=== PATIENT | male | born 1975 | race Caucasian/White ===

== ENCOUNTER 2018-11-02 22:56 | Emergency (ER) | payer SELFPAY ==
[~2018-11-02] VITALS: Ht 160 cm; Wt 80.1 kg
[2018-11-02 23:01] VITALS: Ht 160 cm; Wt 80.1 kg
[2018-11-03] MEDS ORDERED: LIDOCAINE/MYLANTA 40 ML BTL PO STA (00:24)
[2018-11-03] MEDS ORDERED: FAMOTIDINE 20 MG TAB PO STA (00:24)
[2018-11-03] MEDS ORDERED: BELLADONNA/PHENOBARBITAL TAB PO STA (01:04)
[2018-11-03] MEDS ORDERED: OMEP20CA16 PO (01:05)
[2018-11-03] MEDS ORDERED: FAMO-96 PO (01:05)
--- NOTE | 2018-11-03 01:33 | ERD ---
ER Documentation Chief Complaint Chief Complaint upper abdominal/back pain since 1830. also c/o vomiting HPI 43-year-old male who presents the emergency room describing epigastric abdominal discomfort. He describes postprandial burning epigastric abdominal discomfort radiating into the middle of his back. This started after his meal just prior to arrival. The patient describes vomiting at triage but denies this to me. He denies any chest pressure diaphoresis or exertional symptoms. Patient denies any heavy alcohol use, no NSAID abuse. He denies melena. Symptoms are moderate currently. ROS All systems reviewed and are negative except as per history of present illness. Medications Home Meds Active Scripts Famotidine* (Pepcid*) 20 Mg Tablet, 20 MG PO BID PRN for reflux symptoms for 4 Days, TAB Prov:CONY CASTILLO MD 11/03/18 Omeprazole* (Omeprazole*) 20 Mg Capsule.dr, 20 MG PO DAILY, #14 Prov:CONY CASTILLO MD 11/03/18 Allergies Allergies: Coded Allergies: No Known Drug Allergies (Verified Allergy, Unknown, 11/02/18) PMhx/Soc Medical and Surgical Hx: pt denies Medical Hx, pt denies Surgical Hx Hx Alcohol Use: Yes (occassional) Hx Substance Use: No Hx Tobacco Use: No Smoking Status: Never smoker FmHx Family History: No diabetes Physical Exam Vitals Vital Signs Date Temp Pulse Resp B/P (MAP) Pulse Ox O2 O2 Flow FiO2 Time Delivery Rate 11/02/18 98.1 71 18 141/72 98 23:01 (95) Physical Exam General: Well developed, well nourished, no acute distress Head: Normocephalic, atraumatic. Eyes: Pupils equally reactive, EOM intact ENT: Moist mucous membranes Neck: Supple, no lymphadenopathy Respiratory: Lungs clear bilaterally, no distress Cardiovascular: RRR, no murmurs, rubs, or gallops Abdominal: Soft, non-tender, non-distended, no peritoneal signs, negative Bryant sign : Deferred MSK: No edema, no unilateral swelling, 5/5 strength Neurologic: Alert and oriented, moving all extremities, normal speech, no focal weakness, no cerebellar signs Skin: No rash Psych: Normal mood Result Diagram: 11/03/1811411/03/18 011 Results 24 hrs Laboratory Tests Test 11/03/18 01:15 White Blood Count 9.3 10^3/ul Red Blood Count 5.01 10^6/ul Hemoglobin 14.8 g/dl Hematocrit 41.7 % Mean Corpuscular Volume 83.2 fl Mean Corpuscular Hemoglobin 29.5 pg Mean Corpuscular Hemoglobin Concent 35.5 g/dl Red Cell Distribution Width 12.2 % Platelet Count 201 10^3/UL Mean Platelet Volume 10.7 fl Immature Granulocytes % 0.300 % Neutrophils % 88.0 % Lymphocytes % 7.1 % Monocytes % 4.2 % Eosinophils % 0.1 % Basophils % 0.3 % Nucleated Red Blood Cells % 0.0 /100WBC Immature Granulocytes # 0.030 10^3/ul Neutrophils # 8.2 10^3/ul Lymphocytes # 0.7 10^3/ul Monocytes # 0.4 10^3/ul Eosinophils # 0.0 10^3/ul Basophils # 0.0 10^3/ul Nucleated Red Blood Cells # 0.0 10^3/ul Sodium Level 142 mmol/L Potassium Level 3.7 mmol/L Chloride Level 105 mmol/L Carbon Dioxide Level 26 mmol/L Anion Gap 11 Blood Urea Nitrogen 19 mg/dl Creatinine 0.65 mg/dl Est Glomerular Filtrat Rate mL/min > 60 mL/min Glucose Level 155 mg/dl Calcium Level 9.2 mg/dl Total Bilirubin 0.9 mg/dl Direct Bilirubin 0.00 mg/dl Indirect Bilirubin 0.9 mg/dl Aspartate Amino Transf (AST/SGOT) 352 IU/L Alanine Aminotransferase (ALT/SGPT) 181 IU/L Alkaline Phosphatase 94 IU/L Troponin I < 0.012 ng/ml Total Protein 7.6 g/dl Albumin 4.4 g/dl Globulin 3.20 g/dl Albumin/Globulin Ratio 1.37 Lipase 109 U/L Current Medications Medications Dose Sig/Isreal Start Time Status Last (Trade) Ordered Route PRN Stop Time Admin Dose Reason Admin Famotidine 20 mg ONCE STAT 11/03/18 DC 11/03/18 (Pepcid) PO 00:24 00:29 11/03/18 00:25 40 ml ONCE STAT 11/03/18 DC 11/03/18 Miscellaneous PO 00:24 00:29 Medication 11/03/18 00:25 (Gi Cocktail (2)) Belladonna/ 2 tab ONCE STAT 11/03/18 DC 11/03/18 Phenobarbital PO 01:04 01:17 () 11/03/18 01:12 Sodium 1,000 ml @ Q1H STAT 11/03/18 DC Chloride 1,000 mls/hr IV 01:57 11/03/18 02:56 Morphine 4 mg ONCE STAT 11/03/18 DC Sulfate IV 01:57 (morphine) 11/03/18 01:58 Ondansetron 4 mg ONCE STAT 11/03/18 DC HCl (Zofran IV 01:57 Inj) 11/03/18 01:58 Sodium 100 ml @ ud STK-MED 11/03/18 DC Chloride ONCE .ROUTE 02:03 11/03/18 02:04 Iohexol 100 ml @ ud STK-MED 11/03/18 DC ONCE .ROUTE 02:03 11/03/18 02:04 Procedures/MDM EKG, MONITORS, & DIAGNOSTIC IMAGING: EKG: I reviewed and interpreted a 12-lead EKG. Rhythm: Normal sinus rhythm ST Changes: No contiguous ST segment elevations T waves: No contiguous T wave inversions Impression: No evidence of acute cardiac ischemia Chest x-ray: I reviewed and interpreted a 1 view of the chest Mediastinum: No enlargement Cardiac silhouette: No cardiomegaly Airspace: Clear lung rodriguez bilaterally without evidence of pneumothorax Bones: No evidence of fracture US GB IMPRESSION: Limited unremarkable right upper quadrant abdominal ultrasound with the pancreas, liver and common bile duct unable to be visualized secondary to overlying bowel gas. CTA IMPRESSION: 1. No evidence of a pulmonary embolism or thoracic aortic dissection. 2. Mildly distended gallbladder. Consider further evaluation with ultrasound. 3. Moderate gastric distension secondary to retained fluid. 4. Right upper and middle lobe calcified granulomata. RPTAT: HRSR LAB INTERPRETATION: I reviewed the laboratory testing and it shows no evidence of acute process MEDICAL DECISION MAKING: Patient presents with postprandial burning epigastric abdominal discomfort. This is most likely secondary to dyspepsia and likely reflux. Much lower clinical concern for cardiac etiology. Patient has no risk factors for dissection. He denies any significant migratory pain or associated neurologic symptoms. I do not believe CTA of the chest is indicated at this time. ER COURSE: * Patient was given a GI cocktail with only mild to moderate relief. Given persistence of symptoms laboratory testing including LFTs were ordered. Patient was ordered for chest x-ray and troponin. Again very low pretest probability for cardiac etiology but given persistence of symptoms broad work- up was initiated. * The patient had persistent pain. Chest x-ray with borderline mediastinum. CTA ordered to rule out dissection. This is negative but did noted possible gallbladder distention. Gallbladder ultrasound ordered but unable to have definitive study based on the patient's clinical exam and history it is still very consistent with dyspepsia. The patient had persistent symptoms prompting a broader work-up but in the end Patient's laboratory testing is reassuring. And now he is asymptomatic. * I do not believe this is consistent with acute cholecystitis. Vascular process and cardiopulmonary process has been ruled out. * The patient can still be safely discharged with a trial of PPI and Pepcid. CONSULTATION: None DISPOSITION PLAN: The patient does not have an identifiable emergent medical condition that warrants inpatient hospitalization at this time. The patient is deemed safe for discharge with outpatient follow-up. We discussed follow up with the patient's primary care doctor within 24 to 48 hours as needed. We also discussed return to the emergency room for worsening symptoms or worsening condition. Outpatient referral: None required Discharge Medications: Prilosec and Pepcid Departure Diagnosis: Primary Impression: Dyspepsia Additional Impression: Abdominal pain Abdominal location: epigastric Qualified Codes: R10.13 - Epigastric pain Condition: Stable CONY CASTILLO MD Nov 03, 2018 01:33
[2018-11-03] MEDS ORDERED: ONDANSETRON 4 MG INJ IV STA (01:57)
[2018-11-03] MEDS ORDERED: SOD CHLORIDE 0.9% 1,000 ML IV STA (01:57)
[2018-11-03] MEDS ORDERED: morphine 4 MG/ML VIAL IV STA (01:57)
[2018-11-03] MEDS ORDERED: IOHEXOL 100 ML ONE (02:03)
[2018-11-03] MEDS ORDERED: SOD CHLORIDE 0.9% 100 ML ONE (02:03)
[2018-11-03 03:43] VITALS: BP 95/61; PULSE 74; RESP 19
== END 2018-11-03 03:45 | disposition home or self-care (01) ==
LOC: E/R 22:56
DX: R10.13 Epigastric pain (principal); R11.10 Vomiting, unspecified
CPT/HCPCS: 71045; 71275; 76705; 80053; 83690; 84484; 85025; 93005; J2270; J2405; J7030; Q9967; 96374; 96375